=== PATIENT | female | born 1945 | race Caucasian/White ===

== ENCOUNTER → 2017-01-01 | Outpatient (CLI) | payer OTHER, MEDICARE | LOC: GIMAGING 12:53 | PROVIDERS: ATTEND Physician Assistant | DX: R05 Cough (principal); R50.9 Fever, unspecified; R09.02 Hypoxemia | CPT/HCPCS: 71020-PO ==

== ENCOUNTER → 2017-02-01 | Outpatient (CLI) | payer OTHER, MEDICARE | LOC: CIMAGING 14:30 | DX: Z12.31 Encounter for screening mammogram for malignant neoplasm of breast (principal) | CPT/HCPCS: G0202-52 ==

== ENCOUNTER 2017-12-19 08:15 | Inpatient (IN) | payer OTHER, MEDICARE ==
--- NOTE | 2017-12-19 06:45 | PDHPUP ---
History & Physical Update H&P update statement: This history and physical update is based on an assessment of the patient which was completed after admission or registration (within 24 hours), but prior to the surgery/procedure. H&P update: H&P reviewed & patient examined, no change in patient's condition since H&P completed
[2017-12-19] MEDS ORDERED: ACETAMINOPHEN 500 MG TAB PO ONE (10:30)
[2017-12-19] MEDS ORDERED: ceFAZolin 2 GM/SWFI 2 GM/20 ML SYR IVP ONE (10:30)
[2017-12-19] MEDS ORDERED: LR 1,000 ML IV ONE (10:31)
--- NOTE | 2017-12-19 11:58 | PDANEPAE ---
ANE History of Present Illness 72 yo female with back/buttock pain scheduled for L4/5, L5/S1 TLIF. ANE Past Medical History - Cardiovascular History Hx Hypertension: Yes Hx Arrhythmias: No Hx Chest Pain: No Hx Coronary Artery / Peripheral Vascular Disease: No Hx CHF / Valvular Disease: No Hx Palpitations: No Cardiovascular History Comment: MVP. hypercholesterolemia - Pulmonary History Hx COPD: No Hx Asthma/Reactive Airway Disease: No Hx Recent Upper Respiratory Infection: No Hx Oxygen in Use at Home: No Hx Sleep Apnea: No Sleep Apnea Screening Result - Last Documented: Negative - Neurologic History Hx Cerebrovascular Accident: No Hx Seizures: No Hx Dementia: No - Endocrine History Hx Diabetes: No Hypothyroid: No Obesity: no - Renal History Hx Renal Disorders: Yes Renal History Comment: URGE INCONT.LEAKAGE - Liver History Hx Hepatic Disorders: No - Neurological & Psychiatric Hx Hx Neurological and Psychiatric Disorders: Yes Neurological / Psychiatric History Comment: DEPRESSION/ANXIETY - Cancer History Hx Cancer: Yes Cancer History Comment: BREAST - Congenital Disorder History Hx Congenital Disorders: No - GI History Hx Gastrointestinal Disorders: Yes Gastrointestinal History Comment: IBS. DIVERTICULOSIS - Other Health History Other Health History: RESIDUAL RT ARM PAIN/DISCOMFORT POST LYMPH NODE DISSECTION. SPINAL STENOSIS. NT RT LEG. INTERMITTENT VERTIGO. NEUROPATHY. LOWER RT MOLAR DECAYING - Chronic Pain History Chronic Pain: Yes (LOWER BACK AND DOWN RT LEG/SCIATICA) - Surgical History Prior Surgeries: HYSTERECTOMY. RT LYMPH NODE DISSECTION. RT BREAST MASTECTOMY. RT BREAST BX. TUBAL LIGATION. TONSILECTOMY ANE Review of Systems Review of Systems: - Exercise capacity METS (RN): 4 METS - Systems Constitutional: Reports: no symptoms EENMT: Reports: no symptoms Cardiac: Reports: no symptoms Respiratory: Reports: no symptoms ANE Patient History - Allergies Allergies/Adverse Reactions: LUIS CARLOS Inhibitors Allergy (Unverified 12/18/17 14:23) SHORTNESS OF BREATH BETA BLOCKERS Allergy (Mild, Uncoded 11/28/17 16:00) Rash - Home Medications Home Medications: Aspirin EC [Aspirin EC 81 mg (*)] 81 mg PO DAILY 11/28/17 [Last Taken 1 Week Ago ~12/12/17] Cholecalciferol Vit D3 [Vitamin D3 (*)] 2,000 units PO DAILY 11/28/17 [Last Taken 1 Week Ago ~12/12/17] Docusate Sodium [Colace 100 MG (*)] 100 mg PO BID PRN 11/28/17 [Last Taken 12/18] Herbals/Supplements -Info Only 1 ea PO DAILY 11/28/17 [Last Taken 1 Week Ago ~] Hydrochlorothiazide [HCTZ (*)] 25 mg PO DAILY 11/28/17 [Last Taken 12/18/17] LORazepam [Ativan (*)] 1 mg PO HS 11/28/17 [Last Taken 12/18/17] Multivitamins [Multivitamin (*)] 1 each PO DAILY 11/28/17 [Last Taken 1 Week Ago ~12/12/17] Potassium Cl [Klor-Con 20 meq (*)] 20 meq PO DAILY 11/28/17 [Last Taken 1 Week Ago ~12/12/17] Simvastatin 20 mg PO HS 11/28/17 [Last Taken 12/18/17] Terazosin HCl [Hytrin 5 MG (*)] 5 mg PO DAILY 11/28/17 [Last Taken 12/18/17] Venlafaxine HCl [Venlafaxine 25MG (*)] 50 mg PO BID 11/28/17 [Last Taken 07:15] Acetaminophen [Tylenol ES 500 mg (*)] 500 mg PO Q8HRS PRN 12/19/17 [Last Taken 12/18/17] Amoxicillin Trihydrate [Amoxicillin] 500 mg PO TID 12/19/17 [Last Taken 12/18/17 ] - NPO status NPO Since - Liquids (Date): 12/19/17 NPO Since - Liquids (Time): 07:15 (sip of water with meds) NPO Since - Solids (Date): 12/18/17 NPO Since - Solids (Time): 23:55 - Anes Hx Anes Hx: post operative nausea and vomiting - Smoking Hx Smoking Status: Never smoked - Alcohol Use Alcohol Use: None - Family Anes Hx Family Anes Hx: neg - N/A ANE Labs/Vital Signs - Vital Signs Blood Pressure: 143/83 Heart Rate: 64 Respiratory Rate: 14 O2 Sat (%): 94 Height: 166.37 cm Weight: 72.575 kg ANE Physical Exam - Airway Neck exam: FROM Mallampati Score: Class 2 Mouth exam: normal dental/mouth exam - Pulmonary Pulmonary: clear to auscultation - Cardiovascular Cardiovascular: regular rate and rhythym - ASA Status ASA Status: III ANE Anesthesia Plan Anesthesia Plan: general endotracheal anesthesia Lines/Monitors: additional IV
[2017-12-19] MEDS ORDERED: CHLORHEXIDINE GLUC HIBICLENS 118 ML BTL TP ONE (12:29)
[2017-12-19] MEDS ORDERED: THROMBIN (BOVINE) 5,000 UNIT VIAL TP ONE (12:29)
[2017-12-19] MEDS ORDERED: BUPIVACAINE 0.25% 30 ML SDV ONE (12:29)
[2017-12-19] MEDS ORDERED: BACITRACIN 50,000 UNITS/10 ML SYR IRR ONE ×2 (12:30→15:34)
[2017-12-19] MEDS ORDERED: DEXMEDETOMIDINE HCL 400 MCG in NS 100 ML IV SCH (12:30)
[2017-12-19] MEDS ORDERED: MIDAZOLAM 2 MG/2 ML VIAL IVP ONE (12:35)
[2017-12-19] MEDS ORDERED: ACETAMINOPHEN 500 MG TAB PO PRN (12:36)
[2017-12-19] MEDS ORDERED: MIDAZOLAM 2 MG/2 ML VIAL ONE (12:37)
[2017-12-19] MEDS ORDERED: SCOPOLAMINE HYDROBROMIDE 1 MG/3 DAYS PATCH TD ONE (12:38)
[2017-12-19] MEDS ORDERED: MAGNESIUM HYDROXIDE 30 ML UDCUP PO PRN (12:39)
[2017-12-19] MEDS ORDERED: BISACODYL 10 MG SUPP PR PRN (12:39)
[2017-12-19] MEDS ORDERED: ONDANSETRON DISINTEGRATING 4 MG TAB PO PRN (12:39)
[2017-12-19] MEDS ORDERED: morphINE PCA 30 MG/30 ML PCA IV PRN (12:39)
[2017-12-19] MEDS ORDERED: ONDANSETRON 4 MG/2 ML VIAL IVP PRN (12:39)
[2017-12-19] MEDS ORDERED: LACTULOSE 20 GM/30 ML UDCUP PO PRN (12:39)
[2017-12-19] MEDS ORDERED: NALOXONE HCL 0.4 MG/ML INJ IVP PRN ×2 (12:39→17:23)
[2017-12-19] MEDS ORDERED: diphenhydrAMINE 25 MG CAP PO PRN (12:39)
[2017-12-19] MEDS: SCOPOLAMINE HYDROBROMIDE 1 MG/3 DAYS PATCH TD SCH (12:40)
[2017-12-19] MEDS ORDERED: ROCURONIUM 50 MG/5 ML VIAL ONE (12:42)
[2017-12-19] MEDS ORDERED: DEXAMETHASONE 4 MG/ML VIAL ONE (12:42)
[2017-12-19] MEDS ORDERED: LIDOCAINE 2% 5 ML SDV ONE (12:42)
[2017-12-19] MEDS ORDERED: PROPOFOL/EMULSION 500 MG/50 ML BOTTLE IV ONE ×3 (12:43→15:34)
[2017-12-19] MEDS ORDERED: fentaNYL 250 MCG/5 ML INJ ONE (12:43)
[2017-12-19] MEDS ORDERED: NS W/ 20 KCl/L 1,000 ML IV SCH (12:45)
[2017-12-19] MEDS ORDERED: ceFAZolin 2 GM/DEXTROSE 100 ML IV SCH (14:00)
[2017-12-19] MEDS ORDERED: DIAZEPAM 5 MG/ML 1 ML SYR IVP PRN (17:23)
[2017-12-19] MEDS ORDERED: LR 500 ML IV PRN (17:23)
[2017-12-19] MEDS ORDERED: fentaNYL 100 MCG/2 ML INJ IVP PRN (17:23)
[2017-12-19] MEDS ORDERED: PROMETHAZINE HCL 25 MG/ML INJ IVP PRN (17:23)
[2017-12-19] MEDS ORDERED: PHENYLEPHRINE HCL 100 MCG/ML SYR ONE (17:58)
--- NOTE | 2017-12-19 18:03 | SOAPPROG ---
SOAP Progress Note Assessment/Plan: Post Op Visit: S: Awake and alert. Pt with expected lower back pain O: AFVSS, PERRLA/EOMI no droop CN 2-12 grossly intact +lt touch 5/5 BUE/BLE = CDI KAT in place A/P: 72 yo female that is s/p TLIF at L4-S1 -orders in place -call with any questions or concerns -brace when out of bed -pt seen by Dr Lau as well 12/19/17 18:00 Objective: Vital Signs Temp Pulse Resp BP Pulse Ox 37.0 C 64 14 143/83 H 94 12/19/17 11:25 12/19/17 12:37 12/19/17 12:37 12/19/17 12:37 12/19/17 12:37 ICD10 Worksheet Patient Problems: Problems Problem Status Onset Lumbar radicular pain Acute Lumbar stenosis Acute - ICD10 Problem Qualifiers (1) Lumbar stenosis (2) Lumbar radicular pain
--- NOTE | 2017-12-19 18:06 | POSTANESTH ---
Post Anesthetic Evaluation Cardiovascular Status: Tx Hyper/Hypo-tension, Tx Over/Under Hydration Respiratory Status: Requires Airway Assist Level of Consciousness/Mental Status: Unconscious
[2017-12-19] MEDS ORDERED: NALOXONE HCL 0.4 MG/ML INJ ONE (18:34)
--- NOTE | 2017-12-19 18:48 | GOP ---
[f rep st] OPERATIVE REPORT DATE OF OPERATION: 12/19/2017 SURGEON: Bishop Lau MD CHANNEL INSTALLER: Guy Guthrie PA-C. PREOPERATIVE DIAGNOSIS: 1. Lumbar degenerative spondylolisthesis L5-S1. 2. Lumbar degenerative disk disease L4-5, L5-S1. 3. Bilateral lumbosacral radiculopathy. 4. Bilateral recess stenosis L4-5. 5. Right greater than left radiculopathy. POSTOPERATIVE DIAGNOSIS: 1. Lumbar degenerative spondylolisthesis L5-S1. 2. Lumbar degenerative disk disease L4-5, L5-S1. 3. Bilateral lumbosacral radiculopathy. 4. Bilateral recess stenosis L4-5. 5. Right greater than left radiculopathy. PROCEDURE PERFORMED: 1. Posterolateral and intervertebral arthrodesis with bilateral decompressions, L4-5, L5-S1 (20906, [id number]). 2. Posterior segmental instrumentation L4, L5, S1 (32832). 3. Same incision bone graft harvest. 4. Placement of biomechanical intervertebral device L4-5, L5-S1. 5. Spinal stereotaxy. 6. Microscope. FINDINGS: ESTIMATED BLOOD LOSS: 450 cc. INDICATIONS: The patient is a 72-year-old with multilevel cervical stenosis but also very severe lum bar stenosis, particularly at L5-S1, and right greater than left foraminal stenosis at L5-S1 with rig ht greater than left lateral recess stenosis at L4-5 and lumbar degenerative disk disease at L4-5. S he did not have pars defects, but she did have a degenerative spondylolisthesis at L5-S1. I suggeste d a 2-level fusion at L4-5 and 5-1. The risks of adjacent segment disease, hardware malfunction and malposition, nerve injury, spinal fluid leak, vascular injury, pseudoarthrosis, continued symptoms, f ailure to heal, the possible need for future spine surgery were all discussed. She knew that surgery does not always alleviate the pain, but it gave her the best option of alleviating the discomfort. She did want to proceed despite the risks. DESCRIPTION OF PROCEDURE: The patient was taken to the operating room, placed in supine position. G eneral anesthesia was begun. She was flipped prone onto the Carlos table. Care was taken to pad al l points of contact. Her back was sterilely prepped and draped in the usual fashion. She had had a prior history of mastectomy, and care was taken to position her arm carefully, and in fact both arms remained perfectly normal from a neuro physiologic standpoint throughout the entire surgery. She was sterilely prepped and draped. We shot a localizing x-ray. We made a midline incision from the spin ous process of L3 down to the spinous process of S1. The subcutaneous tissue was dissected using Bov ie cautery down through the fascia, and a subperiosteal dissection was made down the L3 lamina, the L 4 lamina, the L5 lamina, and the S1 lamina. Self-retaining retractors were placed. A localizing x-r ay was taken. We denuded the bilateral hypertrophic L5-S1 facets that were absolutely huge. We also denuded the bilateral hypertrophic L4-5 facet joints and decorticated the TPs to create posterolater al arthrodesis. We attached the Stealth reference frame to the L4 spinous process, performed an O-ar m spin, and using frameless stealth stereotaxy, we began to place pedicle screws bilaterally. Her faheem ne was sclerotic, left more than right, but all 6 holes required the utilization of the pedicle finde r. We could not use the power awl probe tap system. We began on the left-hand side where we made pi lot holes at L4, 5 and S1 by stereotactically navigating the pedicle finder through each of the scler otic pedicles. I was very happy with the quality of her bone. We then tapped all of these holes and then followed this up with screws at each level. The left S1 screw, we did not make this one bicort ical. There was excellent bony purchase. We then went to the right-hand side and placed screws on t hat side. We did make the right S1 screw bicortical as this bone while still exceptionally hard was not quite as hard on the right at S1 as on the left, and I did go bicortical with the right-sided S1 screw. An O-arm spin was made. All the screws were in excellent position. They all stimulated at a cceptable levels. We then placed 55 mm rods down on the screws and distracted between L4, 5 and 1. This opened up the disk space nicely and also reduce the spondylolisthesis and opened up the collapse d facet joints on each side. We final tightened these screws. We then drilled a complete L5 laminec blas and inferior bilateral L4 laminectomy and a rostral S1 laminotomy, removing the rostral ring of S1. We harvested this bone for autologous grafting purposes. Her bone remained exceptionally hard. under the microscope, we then began dissecting in the epidural space and removing the complete shelia a of L5 in both of the hypertrophic L5-S1 facet joint complexes where the greatest area of stenosis w as present. It was firmly adherent to the dura. We ignored this initially and worked our way up thr ough the midline of the L5 lamina and then performed bilateral decompressions at L4-5. Here too, the re were numerous dural adhesions, but we were able to diligently continue working under the microscop e, and while it took additional time, we all these and got a nice bilateral decompression a t 4-5. We removed the right L4-5 facet joint, identified the exiting nerve, and we now had access to perform an intervertebral arthrodesis from the right-hand side at L4-5. We worked our way inferiorl y, drilling off the medial portion of the facet joint and drilling flush with the L5 pedicle on the r ight-hand side. We were then able to fracture this large piece of bone off the medial facet and pedi samuel, and this included the pars interarticularis of L5 on the right-hand side. We were then able to dissect this free away from the dura and the exiting L5 nerve root, and this was a real blow for free dom and decompressed the right side from the pedicle of L5 all the way out into the foramen. We jenny sangeeta the right L5-S1 facet joint and the superior articular process of S1 to decompress the foramen co mpletely. We could not remove the medial S1 facet and rostral lamina of S1 because this was all firm ly adherent. We turned our attention to the patient's left-hand side where we again drilled and thin jose juan the rostral lamina of S1 then worked our way up along the medial S1 superior articulating process and fractured this bone out to the lateral recess, and in so doing, we were able to peel it out from lateral toward medial, and this allowed the adhesive fibers to remain stuck to the dura. There was a compressive hourglass sign on the left at the L5-S1 level where this piece of bone and material had been compressing the lateral aspect of the thecal sac. We then went over to the right-hand side and did likewise here where we freed these attachments and peeled from lateral toward the medial, and th is left the adhesive fiber still stuck to the dura. Now we had an excellent bilateral decompression at L5-S1. We then swept the S1 nerve root medially and worked through the axilla of the L5 root at t he L5-S1 level, incised the disk, removed the disk and the cartilaginous endplates. We roughened the subchondral bone at L5-S1 to create arthrodesis. We then went to the L4-5 level where we swept the L5 nerve root medially and worked in the axilla of the 4 root, removed the L4-5 disk and the cartilag inous endplates and roughened the subchondral bone to create arthrodesis. We then placed in the disk space a total of 2 mg of BMP into the disk space itself. We used a small bone morphogenic protein w ith 2 sponges each containing 2 mg of BMP. We placed bony autograft into the disk space and chose 7 x 23 mm devices, inserted them at L4-5 and L5-S1 and expanded them under fluoroscopic guidance, and I was happy with position of both devices in the disk spaces. We then decorticated all the remaining posterolateral bone bilaterally and then placed BMP and bone autograft posterolaterally bilaterally t o conclude the arthrodesis there. Final x-ray was taken. We then placed a subfascial drain and clos ed the incision in multiple layers using Vicryl sutures. Running PDS was placed in the skin itself. The patient was reversed from anesthesia, extubated, and transferred to the recovery room in stable condition. There were no complications. The surgery was more difficult than anticipated because of the really significant dural adhesions, even on this virgin case, and it took approximately 25% longe r to complete the surgery than one would have anticipated given my norms. The patient did well and w as transferred to recovery room. We were happy at the end of the case. COMPLICATIONS: None. /[id number]/MODL
[2017-12-19] MEDS: GABAPENTIN 300 MG CAP PO SCH ×2 (19:44→20:45)
[2017-12-19] MEDS: METHOCARBAMOL 750 MG TAB PO PRN (20:04)
[2017-12-19] MEDS: HYDROmorphone HCL/NS 0.5 MG/ML SYR IVP PRN ×2 (20:04→21:05)
[2017-12-19] MEDS: FAMOTIDINE 20 MG TAB PO SCH (20:45)
[2017-12-19] MEDS: SENNOSIDES/DOCUSATE SODIUM TAB PO SCH (20:45)
[2017-12-19] MEDS: ATORVASTATIN CALCIUM 10 MG TAB PO SCH (20:45)
[2017-12-19] MEDS: ceFAZolin 2 GM/SWFI 2 GM/20 ML SYR IVP SCH (20:45)
[2017-12-19] MEDS: VENLAFAXINE HCL 25 MG TAB PO SCH (20:45)
[2017-12-20] MEDS: LORazepam 1 MG TAB PO SCH ×2 (00:55→21:10)
[2017-12-20] MEDS: GABAPENTIN 300 MG CAP PO SCH ×3 (04:51→21:11)
[2017-12-20] MEDS: ceFAZolin 2 GM/SWFI 2 GM/20 ML SYR IVP SCH (04:51)
[2017-12-20 05:19] LABS: PLATELET COUNT 177 10^3/uL (150-400)
--- NOTE | 2017-12-20 08:27 | NEUSURGPN ---
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 Objective: AAOx3 NAD VSS MAEx4 Motor 5/5 BLE +LT Urinary Catheter in Place: Yes Urinary Catheter Indication: Surgical Requirement Catheter Insertion Date: 12/19/17 - Physician Discussed Patient with DrNereida: Jonn Patient Seen by : Jonn Neurosurgery Physical Exam - Vitals, I&O, Labs I and O 12/19/17 12/20/17 12/21/17 05:59 05:59 05:59 Intake Total 3965 Output Total 1485 Balance 2480 Weight 72.575 kg Intake: Oral (ml) 365 IV Intake (ml) 2940 IV Infused (ml) 660 NS W/ 20 KCl/L 1,000 ml @ 660 75 mls/hr IV CONT TASNEEM Rx #:[id number] Output: Urine (ml) 625 Catheter 625 Estimated Blood Loss (ml) 450 KAT Drain Output (ml) 410 #1 Left Posterior Back 410 Carlos Fox Vital Signs Temp Pulse Resp BP Pulse Ox 36.9 C 75 11 L 109/54 L 96 12/20/17 05:00 12/20/17 06:00 12/20/17 06:00 12/20/17 06:00 12/20/17 06:00 Laboratory Results 12/20/17 05:10 12/20/17 05:10 ICD10 Worksheet Patient Problems: Problems Problem Status Onset Lumbar radicular pain Acute Lumbar stenosis Acute
[2017-12-20] MEDS: METHOCARBAMOL 750 MG TAB PO PRN ×2 (09:02→17:02)
[2017-12-20] MEDS: oxyCODONE IR 5 MG TAB PO PRN ×2 (09:11→13:28)
[2017-12-20] MEDS: VENLAFAXINE HCL 25 MG TAB PO SCH ×2 (09:11→22:14)
[2017-12-20] MEDS: SENNOSIDES/DOCUSATE SODIUM TAB PO SCH ×2 (09:11→21:10)
[2017-12-20] MEDS: POTASSIUM CL 20 MEQ TAB PO SCH (09:11)
[2017-12-20] MEDS: FAMOTIDINE 20 MG TAB PO SCH ×2 (09:11→21:11)
--- NOTE | 2017-12-20 11:08 | ASMTCMCOM ---
CM Note CM Note Notes: Chart reviewed for discharge planning purposes. 72 year old female lives Independent with her in [place]. Per Neuro likely able to transfer to med surg later today.. therapies pending. CM to follow for needs, Date Signed: 12/20/2017 11:08 AM Electronically Signed By:Tyra Mendez RN
[2017-12-20] MEDS: HYDROCHLOROTHIAZIDE 25 MG TAB PO SCH (11:58)
[2017-12-20] MEDS: TERAZOSIN HCL 5 MG CAP PO SCH (11:59)
--- NOTE | 2017-12-20 12:02 | PDMN ---
Medical Necessity Medical necessity: IP surgery per [facility] cpt 79087, [id number] arthrodesis
[2017-12-20] MEDS: HYDROCODONE/APAP 5/325 TAB PO PRN ×2 (17:57→22:15)
[2017-12-20] MEDS: ATORVASTATIN CALCIUM 10 MG TAB PO SCH (21:10)
[2017-12-21] MEDS: GABAPENTIN 300 MG CAP PO SCH ×3 (05:39→22:54)
[2017-12-21] MEDS: METHOCARBAMOL 750 MG TAB PO PRN ×2 (05:53→20:02)
[2017-12-21] MEDS: HYDROCODONE/APAP 5/325 TAB PO PRN ×3 (05:53→20:02)
--- NOTE | 2017-12-21 07:22 | NEUSURGPN ---
Date of Surgery: 12/19/17 Post Op Day: 2 Assessment/Plan: A/P: 72 yo female that is s/p TLIF at L4-S1 POD#2. -PT/OT -Pain management - continue oral regimen -TEDs, SCDs, lovenox on 12/22 -brace when out of bed -Post op XRays show stable hardware -Continue JPx1, likely out later today -dispo planning - home when cleared by therapies and pain well managed. Subjective: doing well, some expected pain, well controlled, No weakness/numbness/N/V/F Objective: AAOx3, sleepy but easily arousable NAD cnii-xii grossly intact VSS MAEx4 Motor 5/5 BLE +LT incision dressed, and dry JPx1 315 out yesterday. Catheter Insertion Date: 12/19/17 - Physician Discussed Patient with : Sid Neurosurgery Physical Exam - Vitals, I&O, Labs I and O 12/20/17 12/21/17 12/22/17 05:59 05:59 05:59 Intake Total 3965 2850 Output Total 1485 1016 Balance 2480 1834 Weight 72.575 kg Intake: Oral (ml) 365 1750 IV Intake (ml) 2940 1100 IV Infused (ml) 660 NS W/ 20 KCl/L 1,000 ml @ 660 75 mls/hr IV CONT TASNEEM Rx #:[id number] Output: Urine (ml) 625 701 Catheter 625 201 Toilet 500 Estimated Blood Loss (ml) 450 KAT Drain Output (ml) 410 315 #1 Left Posterior Back 410 315 Carlos Fox Other: Number of Voids Toilet 1 Vital Signs Temp Pulse Resp BP Pulse Ox 36.6 C 69 18 116/59 L 95 12/21/17 04:00 12/21/17 04:00 12/21/17 04:00 12/21/17 04:00 12/21/17 04:00 Laboratory Results 12/20/17 05:10 12/20/17 05:10 ICD10 Worksheet Patient Problems: Problems Problem Status Onset Lumbar radicular pain Acute Lumbar stenosis Acute
[2017-12-21] MEDS: FAMOTIDINE 20 MG TAB PO SCH ×2 (08:18→20:01)
[2017-12-21] MEDS: POTASSIUM CL 20 MEQ TAB PO SCH (08:19)
[2017-12-21] MEDS: TERAZOSIN HCL 5 MG CAP PO SCH (08:19)
[2017-12-21] MEDS: HYDROCHLOROTHIAZIDE 25 MG TAB PO SCH (08:20)
[2017-12-21] MEDS: SENNOSIDES/DOCUSATE SODIUM TAB PO SCH ×2 (08:20→20:01)
[2017-12-21] MEDS: POLYETHYLENE GLYCOL 3350 17 GM PKT PO PRN (08:26)
[2017-12-21] MEDS: VENLAFAXINE HCL 25 MG TAB PO SCH ×2 (09:21→19:59)
--- NOTE | 2017-12-21 09:23 | ASMTCMCOM ---
CM Note CM Note Notes: CM reviewed therapy notes. Therapies are recommending home without any d/c needs. CM available for changes. Plan: Independent Date Signed: 12/21/2017 09:23 AM Electronically Signed By:ROSAS Au
[2017-12-21] MEDS: ATORVASTATIN CALCIUM 10 MG TAB PO SCH (20:01)
[2017-12-21] MEDS: LORazepam 1 MG TAB PO SCH (20:01)
[2017-12-22] MEDS: GABAPENTIN 300 MG CAP PO SCH ×2 (05:38→15:21)
[2017-12-22] MEDS: HYDROCODONE/APAP 5/325 TAB PO PRN ×3 (05:38→20:07)
[2017-12-22] MEDS: METHOCARBAMOL 750 MG TAB PO PRN ×2 (05:38→18:46)
[2017-12-22] MEDS: FAMOTIDINE 20 MG TAB PO SCH ×2 (09:46→20:07)
[2017-12-22] MEDS: POTASSIUM CL 20 MEQ TAB PO SCH (09:46)
[2017-12-22] MEDS: HYDROCHLOROTHIAZIDE 25 MG TAB PO SCH (09:46)
[2017-12-22] MEDS: ENOXAPARIN 40 MG/0.4 ML SYR SC SCH (09:47)
[2017-12-22] MEDS: SENNOSIDES/DOCUSATE SODIUM TAB PO SCH ×2 (09:47→20:07)
[2017-12-22] MEDS: VENLAFAXINE HCL 25 MG TAB PO SCH ×2 (09:47→20:06)
[2017-12-22] MEDS: TERAZOSIN HCL 5 MG CAP PO SCH (09:47)
[2017-12-22] MEDS: POLYETHYLENE GLYCOL 3350 17 GM PKT PO PRN (09:56)
--- NOTE | 2017-12-22 10:40 | NEUSURGPN ---
Assessment/Plan: Assessment/Plan: A/P: 72 yo female that is s/p TLIF at L4-S1 POD#3. -PT/OT -Pain management - continue oral regimen, doing better each day. -TEDs, SCDs, lovenox starts today -brace when out of bed -Post op XRays show stable hardware -Remove KAT Drain today -dispo planning - home today Subjective: Doing well, eager to go home later today. Denies pain in legs, voiding well no BM yet but passing gas. Objective: AAOx3, NAD cnii-xii grossly intact VSS MAEx4 Motor 5/5 BLE +LT incision dressed, and dry JPx1 to full suction, serosang Catheter Insertion Date: 12/19/17 - Physician Discussed Patient with .: Sid Neurosurgery Physical Exam - Vitals, I&O, Labs I and O 12/21/17 12/22/17 12/23/17 05:59 05:59 05:59 Intake Total 2850 575 Output Total 1016 120 Balance 1834 455 Intake: Oral (ml) 1750 575 IV Intake (ml) 1100 Output: Urine (ml) 701 Catheter 201 Toilet 500 KAT Drain Output (ml) 315 120 #1 Left Posterior Back 315 120 Carlos Fox Other: Intake Quantity Yes Sufficient Number of Voids Toilet 1 2 1 Vital Signs Temp Pulse Resp BP Pulse Ox 37.1 C 67 16 124/73 H 93 12/22/17 07:19 12/22/17 07:19 12/22/17 07:19 12/22/17 07:19 12/22/17 07:19 Laboratory Results 12/20/17 05:10 12/20/17 05:10 ICD10 Worksheet Patient Problems: Problems Problem Status Onset Lumbar radicular pain Acute Lumbar stenosis Acute
[2017-12-22] MEDS ORDERED: PATCH REMOVAL 1 EA PATCH TD SCH (12:36)
[2017-12-22] MEDS: SCOPOLAMINE HYDROBROMIDE 1 MG/3 DAYS PATCH TD SCH (15:44)
[2017-12-22] MEDS: ATORVASTATIN CALCIUM 10 MG TAB PO SCH (20:06)
[2017-12-22] MEDS: LORazepam 1 MG TAB PO SCH (20:06)
[2017-12-23] MEDS: oxyCODONE IR 5 MG TAB PO PRN ×2 (00:04→05:51)
[2017-12-23] MEDS: VENLAFAXINE HCL 25 MG TAB PO SCH (09:06)
[2017-12-23] MEDS: TERAZOSIN HCL 5 MG CAP PO SCH (09:07)
[2017-12-23] MEDS: HYDROCHLOROTHIAZIDE 25 MG TAB PO SCH (09:07)
[2017-12-23] MEDS: FAMOTIDINE 20 MG TAB PO SCH (09:07)
[2017-12-23] MEDS: SENNOSIDES/DOCUSATE SODIUM TAB PO SCH ×2 (09:07→09:15)
[2017-12-23] MEDS: ENOXAPARIN 40 MG/0.4 ML SYR SC SCH (09:08)
[2017-12-23] MEDS: POTASSIUM CL 20 MEQ TAB PO SCH (09:08)
--- NOTE | 2017-12-23 09:55 | NEUSURGPN ---
Assessment/Plan: Assessment/Plan: A/P: 72 yo female that is s/p TLIF at L4-S1 POD#4. -PT/OT -Pain management - continue oral regimen, doing better each day. -TEDs, SCDs, lovenox starts today -brace when out of bed -Post op XRays show stable hardware -Kat Drain removed -dispo planning - home today and recommending Home Health Care PT, OT Subjective: Doing well,still has not had a BM and uncomfortable from this but is passing gas. Stopped gabapentin as it was making her feel "loopy". Objective: AAOx3, NAD VSS Motor 5/5 BLE +LT incision dressed, and dry Catheter Insertion Date: 12/19/17 - Physician Discussed Patient with .: Sid Neurosurgery Physical Exam - Vitals, I&O, Labs I and O 12/22/17 12/23/17 12/24/17 05:59 05:59 05:59 Intake Total 575 1900 Output Total 120 Balance 455 1900 Intake: Oral (ml) 575 1900 Output: KAT Drain Output (ml) 120 #1 Left Posterior Back 120 Carlos Fox Other: Intake Quantity Yes Yes Sufficient Number of Voids Toilet 2 1 Vital Signs Temp Pulse Resp BP Pulse Ox 37.2 C 77 16 142/81 H 80 L 12/23/17 08:02 12/23/17 08:02 12/23/17 09:04 12/23/17 08:02 12/23/17 09:04 Laboratory Results 12/20/17 05:10 12/20/17 05:10 ICD10 Worksheet Patient Problems: Problems Problem Status Onset Lumbar radicular pain Acute Lumbar stenosis Acute
--- NOTE | 2017-12-23 09:58 | PDIAF ---
- Diagnosis Code Status: Full Code - Medication Management Discharge Medications: Medications to Continue on Transfer Cholecalciferol Vit D3 [Vitamin D3 (*)] 2,000 units PO DAILY 11/28/17 [Last Taken 1 Week Ago ~12/12/17] Docusate Sodium [Colace 100 MG (*)] 100 mg PO BID PRN 11/28/17 [Last Taken 12/18] Herbals/Supplements -Info Only 1 ea PO DAILY 11/28/17 [Last Taken 1 Week Ago ~] Hydrochlorothiazide [HCTZ (*)] 25 mg PO DAILY 11/28/17 [Last Taken 12/18/17] LORazepam [Ativan (*)] 1 mg PO HS 11/28/17 [Last Taken 12/18/17] Multivitamins [Multivitamin (*)] 1 each PO DAILY 11/28/17 [Last Taken 1 Week Ago ~12/12/17] Potassium Cl [Klor-Con 20 meq (*)] 20 meq PO DAILY 11/28/17 [Last Taken 1 Week Ago ~12/12/17] Simvastatin 20 mg PO HS 11/28/17 [Last Taken 12/18/17] Terazosin HCl [Hytrin 5 MG (*)] 5 mg PO DAILY 11/28/17 [Last Taken 12/18/17] Venlafaxine HCl [Venlafaxine 25MG (*)] 50 mg PO BID 11/28/17 [Last Taken 07:15] Acetaminophen [Tylenol ES 500 mg (*)] 500 mg PO Q8HRS PRN 12/19/17 [Last Taken 12/18/17] Amoxicillin Trihydrate [Amoxil] 500 mg PO TID 12/19/17 [Last Taken 12/18/17] Gabapentin [Neurontin 300 MG (*)] 300 mg PO Q8HRS 30 Days #90 cap 12/22/17 [ Last Taken Unknown] Hydrocodone/APAP 5/325 [[place] 5/325 (*)] 1 - 2 tab PO Q4HRS PRN #90 tab [Last Taken Unknown] Methocarbamol [Robaxin 750 mg (*)] 750 mg PO QID PRN #60 tab 12/22/17 [Last Taken Unknown] Polyethylene Glycol 3350 [Miralax 17 gm (*)] 17 gm PO DAILY PRN pkt 12/22/17 [ Last Taken Unknown] Discharge Medications: Refer to the Discharge Home Medication list for PRN reason. - Orders Services needed: Home Intermediate Care Face to Face: I certify that this patient was under my care and that I had the required [id number] encounter meeting the encounter requirements on the discharge day. My findings support the fact that the patient is homebound as defined in Home Care Face to Face Continued: CMS Chapter 7 Medicare Benefits Manual 30.1.1 , The condition of the patient is such that there exists a normal inability to leave home and consequently, leaving home would require a considerable and taxing effort. Diet Recommendation: no restrictions on diet Diet Texture: Regular Texture Diet Gregor Stockings Discontinue Date: once she is walking 10 minutes at a time 3 times per day Wound Care Instructions: May shower, keep showers short, 5-7 minutes, no scrubbing incision, pat dry with towel. No large dressing unless wanted for comfort Activity/Weight Bearing Restrictions: Wear your brace when you are up and out of bed. No bending at the waist, lifting, or twisting more than 5-10 pounds for 6 weeks - Follow Up Care Current Providers and Referrals: Eliza Doan MD [Primary Care Provider] - Avis Lau MD [Medical Doctor] - follow up in 2 weeks
--- NOTE | 2017-12-23 10:18 | PDHOMEO2F ---
Home Oxygen Face to Face Home Orders: I certify that a physician or a nurse practitioner or physician's transportation assistant has had a [id number] encounter with this patient on the date of this order due to the diagnosis listed, which relates to the primary reason the patient requires home oxygen. Alternative treatments have been tried, or considered, and deemed ineffective. It is anticipated that supplemental oxygen will result in improvement with treatment. Home oxygen qualifying diagnosis: Hypoxia, shortness of breath SpO2 on room air (%): 80 Frequency of home oxygen needed: continuous Home oxygen liters per minute: 3L Home oxygen delivery device: nasal cannula Concentrator: No E-tanks for mobility and back up: Yes If ordering portable O2, is the patient mobile in the home?: Yes I certify that, based on these findings, the home oxygen is medically necessary for this patient for the following length of time. Length of time home oxygen needed: 1 week (Or until follow up with PCP)
--- NOTE | 2017-12-23 11:36 | ASDISCHSUM ---
Discharge Information Plan Status:Home with Home Health Medically Cleared to Leave:12/23/2017 Discharge Date:12/23/2017 CM D/C Disposition:Home Health Service ADT D/C Disposition:Home Health Service Projected Discharge Date:12/23/2017 01:00 PM Transportation at D/C:Family Discharge Delay Reason: Follow-Up Date:12/23/2017 01:00 PM Discharge Slot:2 - 12:01 pm - 18:00 pm Final Diagnosis:Back Pain Placement Information Referral Type:*Home Health Care Services Referral ID:[id number] Provider Name:[facility] [address] Address 2: City:[place] Selection Factors: State:[place] Patient Contact Information Contact Name:AIDEE Relationship: Address:[address] [place] [address] City:[place] Alternate Phone: State/Zip Code:[place] [address] Email: Financial Information Financial Class:Medicare Primary Plan Desc:MEDICARE INPATIENT Primary Plan Number:[id number] Secondary Plan Desc:[employer]/MDR SUPPLEMENT Secondary Plan Number:[id number] Assessment Information [facility] CM Progress Note CM Note CM Note Notes: Chart reviewed for discharge planning purposes. 72 year old female lives Independent with her in [place]. Per Neuro likely able to transfer to med surg later today.. therapies pending. CM to follow for needs, Date Signed: 12/20/2017 11:08 AM Electronically Signed By:Tyra Mendez RN [facility] CM Progress Note CM Note CM Note Notes: CM reviewed therapy notes. Therapies are recommending home without any d/c needs. CM available for changes. Plan: Independent Date Signed: 12/21/2017 09:23 AM Electronically Signed By:ROSAS Au Case Management Discharge Plan Note Case Management Discharge Discharge Order Complete? Answers: Yes Patient to Obtain Answers: via Family Medications Transportation Arranged Answers: Family/Friends Transport will Pick (Date 12/23/2017 01:00 PM & Time) Faxed Final Orders Answers: Yes Notes: [facility] Family Notified Answers: Yes Notes: to transport Discharge Comments Notes: Patient has been discharged home w/. [facility] will follow w/HC services but they can not start until Sunday. Date Signed: 12/23/2017 11:21 AM Electronically Signed By:Marianela Correa LCSW Intervention Information Intervention Type:*IM-Signed Date of Service:12/23/2017 11:22 AM Patient Type:Inpatient Staff Member:ANDRES Correa Judith Hours:0.25 Discipline:Jacquard Loom Fixer Severity: Comment:
[2017-12-23 12:38] VITALS: BP 132/68; RESP 18; TEMP 99.4
[2017-12-23] MEDS: HYDROCODONE/APAP 5/325 TAB PO PRN (14:25)
[2017-12-23 17:09] VITALS: PULSE 77; O2SAT 97
== END 2017-12-23 16:07 | disposition home health service (06) | DRG 460 ==
LOC: F3N 09:58 → F2N 19:43 → F3N 12-20 14:35
PROVIDERS: ADMIT Internal Medicine; ATTEND Neurological Surgery
PROC: 0SG3071 Fusion of Lumbosacral Joint with Autologous Tissue Substitute, Posterior Approach, Posterior Column, Open Approach (ICD-10-PCS; principal; 2017-12-19 11:15)
PROC: 4A1004G Monitoring of Central Nervous Electrical Activity, Intraoperative, Open Approach (ICD-10-PCS; principal; 2017-12-19 11:15)
PROC: 8E0WXBZ Computer Assisted Procedure of Trunk Region (ICD-10-PCS; principal; 2017-12-19 11:15)
PROC: 0SG0071 Fusion of Lumbar Vertebral Joint with Autologous Tissue Substitute, Posterior Approach, Posterior Column, Open Approach (ICD-10-PCS; principal; 2017-12-19 11:15)
PROC: 01NB0ZZ Release Lumbar Nerve, Open Approach (ICD-10-PCS; principal; 2017-12-19 11:15)
PROC: 00NY0ZZ Release Lumbar Spinal Cord, Open Approach (ICD-10-PCS; principal; 2017-12-19 11:15)
DX: M43.17 Spondylolisthesis, lumbosacral region (principal); M51.36 Other intervertebral disc degeneration, lumbar region; M51.37 Other intervertebral disc degeneration, lumbosacral region; M54.17 Radiculopathy, lumbosacral region; M48.061 Spinal stenosis, lumbar region without neurogenic claudication; I10 Essential (primary) hypertension; N39.41 Urge incontinence; Z90.10 Acquired absence of unspecified breast and nipple
CPT/HCPCS: 97116-GP; 97161-GP; 97165-GO; 97530-GO; 97530-GP; 97535-GO; C1713; G8978-GP-CI; G8978-GP-CJ; G8979-GP-CI; G8980-GP-CI; G8987-GO-CJ; G8988-GO-CI; G8989-GO-CJ; J0171; J0690; J1100; J1170; J1200; J1650; J2250; J2270; J2310; J2370; J2704; J3010

== ENCOUNTER → 2018-01-02 | Outpatient (CLI) | payer OTHER, MEDICARE | LOC: FIMAGING 10:12 → EDSTATUS 10:12 | PROVIDERS: ATTEND Nurse Practitioner | DX: Z09 Encounter for follow-up examination after completed treatment for conditions other than malignant neoplasm (principal); M51.36 Other intervertebral disc degeneration, lumbar region; M51.34 Other intervertebral disc degeneration, thoracic region; Z98.1 Arthrodesis status ==

== ENCOUNTER → 2018-02-14 | Outpatient (CLI) | payer OTHER, MEDICARE | LOC: FIMAGING 12:33 | PROVIDERS: ATTEND Nurse Practitioner | DX: Z09 Encounter for follow-up examination after completed treatment for conditions other than malignant neoplasm (principal); Z98.1 Arthrodesis status ==

== ENCOUNTER → 2018-05-21 | Outpatient (CLI) | payer OTHER, MEDICARE | LOC: FIMAGING 12:58 | PROVIDERS: ATTEND Nurse Practitioner | DX: Z98.1 Arthrodesis status (principal) ==

== ENCOUNTER → 2018-07-05 | Outpatient (CLI) | payer OTHER, MEDICARE | LOC: CIMAGING 12:30 | PROVIDERS: ATTEND Internal Medicine | DX: Z12.31 Encounter for screening mammogram for malignant neoplasm of breast (principal); Z85.3 Personal history of malignant neoplasm of breast; Z80.3 Family history of malignant neoplasm of breast; Z90.11 Acquired absence of right breast and nipple ==

== ENCOUNTER → 2018-09-11 | Outpatient (CLI) | payer OTHER, MEDICARE | LOC: FIMAGING 12:53 | PROVIDERS: ATTEND Nurse Practitioner | DX: Z09 Encounter for follow-up examination after completed treatment for conditions other than malignant neoplasm (principal); Z98.1 Arthrodesis status; M47.24 Other spondylosis with radiculopathy, thoracic region; M47.26 Other spondylosis with radiculopathy, lumbar region; M43.16 Spondylolisthesis, lumbar region; M43.17 Spondylolisthesis, lumbosacral region ==

== ENCOUNTER → 2019-01-21 | Outpatient (CLI) | payer OTHER, MEDICARE | LOC: FIMAGING 12:25 | PROVIDERS: ATTEND Nurse Practitioner | DX: Z98.1 Arthrodesis status (principal) ==